=== PATIENT | female | born 1960 | race Caucasian/White ===

== ENCOUNTER 2016-10-26 05:27 | Inpatient (IN) | payer OTHER ==
[~2016-10-26] VITALS: Ht 154.9 cm; Wt 81.0 kg
[2016-10-26 05:49] LABS: HEMOGLOBIN 10.9 gm/dl (12.3-15.3); RED BLOOD COUNT 4.86 M/UL (4.00-5.10); WHITE BLOOD COUNT 9.7 K/UL (4.5-11.0)
[2016-10-26] MEDS ORDERED: SYNTHROID75 MCG PO (22:10)
[2016-10-26] MEDS ORDERED: PANTOPRAZOLE SO40 MG PO (22:11)
[2016-10-26] MEDS ORDERED: SEROQUEL XR300 MG PO (22:12)
[2016-10-26] MEDS ORDERED: ZYRTEC10 M3 PO (22:12)
[2016-10-26] MEDS ORDERED: REMERON30 MG PO (22:13)
[2016-10-26] MEDS ORDERED: EXELON1 EACH TD (22:14)
[2016-10-26] MEDS ORDERED: CELEXA20 MG PO (22:15)
[2016-10-26] MEDS ORDERED: JANUVIA 100 MG100 MG PO (22:15)
[2016-10-26] MEDS ORDERED: LAMICTAL ODT100 MG PO (22:15)
[2016-10-26] MEDS ORDERED: SYMBICORT 16010.2 GM INH (22:16)
[2016-10-26] MEDS ORDERED: LISINOPRIL5 MG PO (22:16)
[2016-10-26] MEDS ORDERED: ASPIRIN CHEWABL81 MG PO (22:17)
[2016-10-26] MEDS ORDERED: MIRAPEX0.75 MG PO (22:17)
[2016-10-26] MEDS ORDERED: LIPITOR TAB 2020 MG PO (22:18)
[2016-10-26] MEDS ORDERED: TRICOR 145 MG145 MG PO (22:18)
[2016-10-26] MEDS ORDERED: BENZTROPINE MESY1 MG PO (22:19)
[2016-10-26] MEDS ORDERED: NICOTINE PATCH1 EAC1 TD (22:20)
[2016-10-26] MEDS ORDERED: FREESTYLE LITE1 EAC1 MC (22:21)
[2016-10-27 02:27] LABS: HEMOGLOBIN 9.4 gm/dl (12.3-15.3); WHITE BLOOD COUNT 8.1 K/UL (4.5-11.0)
[2016-10-27 02:29] LABS: RED BLOOD COUNT 4.2 M/UL (4.00-5.10)
[2016-10-28 03:51] LABS: HEMOGLOBIN 10.4 gm/dl (12.3-15.3); RED BLOOD COUNT 4.64 M/UL (4.00-5.10); WHITE BLOOD COUNT 7.8 K/UL (4.5-11.0)
== END 2016-10-29 13:40 | disposition home or self-care (01) | DRG 274 ==
LOC: ER1 05:27 → PROG CARE 12:57 → ZEROF 12:57 → PROG CARE 12:57
PROVIDERS: Family Medicine; ADMIT Internal Medicine Infectious Disease
PROC: 4A023FZ Measurement of Cardiac Rhythm, Percutaneous Approach (ICD-10-PCS; principal; 2016-10-28)
PROC: 02583ZZ Destruction of Conduction Mechanism, Percutaneous Approach (ICD-10-PCS; 2016-10-28)
PROC: 4A0234Z Measurement of Cardiac Electrical Activity, Percutaneous Approach (ICD-10-PCS; 2016-10-28)
PROC: 02K83ZZ Map Conduction Mechanism, Percutaneous Approach (ICD-10-PCS; 2016-10-28)
DX: I47.1 Supraventricular tachycardia (principal); I20.0 Unstable angina; F20.0 Paranoid schizophrenia; N17.9 Acute kidney failure, unspecified; K21.9 Gastro-esophageal reflux disease without esophagitis; G30.9 Alzheimer's disease, unspecified; F02.80 Dementia in other diseases classified elsewhere, unspecified severity, without behavioral disturbance, psychotic disturbance, mood disturbance, and anxiety; E03.9 Hypothyroidism, unspecified; E78.5 Hyperlipidemia, unspecified; I12.9 Hypertensive chronic kidney disease with stage 1 through stage 4 chronic kidney disease, or unspecified chronic kidney disease; E11.22 Type 2 diabetes mellitus with diabetic chronic kidney disease; N18.3 Chronic kidney disease, stage 3 (moderate); F17.220 Nicotine dependence, chewing tobacco, uncomplicated; D64.89 Other specified anemias; I27.2 Other secondary pulmonary hypertension; Z82.49 Family history of ischemic heart disease and other diseases of the circulatory system; Z84.1 Family history of disorders of kidney and ureter; Z80.0 Family history of malignant neoplasm of digestive organs; Z79.84 Long term (current) use of oral hypoglycemic drugs; Z79.82 Long term (current) use of aspirin; Z79.899 Other long term (current) drug therapy
CPT/HCPCS: ECHO; 36415; 71010; 78452; 80048; 80053; 80061; 82550; 82553; 82607; 82728; 82746; 82962; 83036; 83540; 83550; 83735; 83874; 84439; 84443; 84484; 85025; 85027; 85730; 93005; 93017; 93306; 93609; 93621; 93623; 94664; 96374; 99285; A9502; C1730; C1733; C1766; G0378; J1644; J2250; J2785; J3010; J7030; J7040; J7050

== ENCOUNTER → 2022-01-22 | Outpatient (CLI) | payer MEDICARE, OTHER ==
[~2022-01-22] MED LIST: ASPIRIN CHEWABL81 MG PO; BENZTROPINE MESY1 MG PO; CELEXA20 MG PO; EXELON1 EACH TD; FREESTYLE LITE1 EAC1 MC; JANUVIA 100 MG100 MG PO; LAMICTAL ODT100 MG PO; LIPITOR TAB 2020 MG PO; LISINOPRIL5 MG PO; MIRAPEX0.75 MG PO; NICOTINE PATCH1 EAC1 TD; PANTOPRAZOLE SO40 MG PO; REMERON30 MG PO; SEROQUEL XR300 MG PO; SYMBICORT 16010.2 GM INH; SYNTHROID75 MCG PO; TRICOR 145 MG145 MG PO; ZYRTEC10 M3 PO
== END ==
LOC: HEART 5 14:55
DX: R00.2 Palpitations (principal); R06.02 Shortness of breath; I11.9 Hypertensive heart disease without heart failure; I08.3 Combined rheumatic disorders of mitral, aortic and tricuspid valves
CPT/HCPCS: 93306

== ENCOUNTER → 2022-01-31 | Outpatient (CLI) | payer MEDICARE, OTHER ==
[~2022-01-31] MED LIST changes: +ABILIFY MAINTE400 MG IM; +AZELASTINE137 MCG/0.; +BEVESPI AEROS10.7 GM INH; +CARVEDILOL6.25 MG PO; +CLONAZEPAM1 MG PO; +DEXCOM G61 EAC1 MC; +EXELON1 EAC1 TD; +FERREX 150150 MG PO; +MAGNESIUM100 MG PO; +OMNIPOD1 EACH SQ; +PROAIR HFA8.5 GM INH; +SOTALOL80 MG PO; +TRULICITY1.5 MG/0.5 SQ
[2022-01-31 10:38] LABS: HEMOGLOBIN 14.1 gm/dl (12.3-15.3); RED BLOOD COUNT 4.83 M/UL (4.00-5.10); WHITE BLOOD COUNT 7.9 K/UL (4.5-11.0)
== END ==
LOC: LAB 10:22
PROVIDERS: Internal Medicine Cardiovascular Disease
DX: I20.9 Angina pectoris, unspecified (principal); R42 Dizziness and giddiness; I10 Essential (primary) hypertension; R06.02 Shortness of breath; R00.2 Palpitations
CPT/HCPCS: 36415; 80048; 85025

== ENCOUNTER → 2022-02-04 | Outpatient (CLI) | payer MEDICARE, OTHER | LOC: CATH 10:02 | DX: I47.1 Supraventricular tachycardia (principal); I44.30 Unspecified atrioventricular block; F17.290 Nicotine dependence, other tobacco product, uncomplicated; R42 Dizziness and giddiness; I12.9 Hypertensive chronic kidney disease with stage 1 through stage 4 chronic kidney disease, or unspecified chronic kidney disease; E11.22 Type 2 diabetes mellitus with diabetic chronic kidney disease; N18.9 Chronic kidney disease, unspecified; E03.9 Hypothyroidism, unspecified; E78.5 Hyperlipidemia, unspecified; F20.0 Paranoid schizophrenia; J44.9 Chronic obstructive pulmonary disease, unspecified; R06.02 Shortness of breath; E66.01 Morbid (severe) obesity due to excess calories; Z98.890 Other specified postprocedural states; Z88.6 Allergy status to analgesic agent; Z88.1 Allergy status to other antibiotic agents; Z79.82 Long term (current) use of aspirin | CPT/HCPCS: 82962; 93005; 93620; 93621; 93623; 99152; 99153; C1730; C1766; J1644; J2250; J3010; J7040 ==